=== PATIENT | male | born 1995 | race Caucasian/White ===

== ENCOUNTER 2022-07-22 11:48 | Emergency (ER) | payer OTHER ==
[2022-07-22] MEDS ORDERED: KETOROLAC 30 MG/ML INJ ONE (12:04)
[2022-07-22] MEDS ORDERED: ONDANSETRON 4 MG/2 ML VIAL ONE ×2 (12:05→12:16)
[2022-07-22] MEDS ORDERED: NA CHLORIDE 0.9% 1,000 ML ONE ×2 (12:05→15:07)
[2022-07-22 12:15] LABS: Absolute Lymphocytes (CBC) 3.7 K/uL (0.7-4.9); Hematocrit 46.8 % (39.6-49.0); Lymphocytes % 29.9 % (15.3-44.8); MCV 89.3 fL (80-100); MPV 8.9 fL (7.6-11.3); RBC Red Blood Cell Count 5.24 M/uL (4.33-5.43)
[2022-07-22] MEDS ORDERED: CEFTRIAXONE 1000 MG/VIAL ONE (12:16)
[2022-07-22] MEDS ORDERED: TAMSULOSIN 0.4 MG SR CAP ONE (12:16)
[2022-07-22] MEDS ORDERED: MORPHINE 4 MG/ML SYR ONE (12:16)
[2022-07-22 12:30] LABS: Albumin 4.5 g/dL (3.4-5.0); Bilirubin Total 0.9 mg/dL (0.2-1.0); Potassium 3.6 mEq/L (3.5-5.1); Protein, Total 7.9 g/dL (6.4-8.2)
--- NOTE | 2022-07-22 13:14 | RAD REPORT ---
EXAM DESCRIPTION: CT - Stone Protocol - 07/22/2022 1:03 pm CLINICAL HISTORY: Flank pain. FLANK PAIN COMPARISON: No comparisons TECHNIQUE: Axial images were obtained without oral or IV contrast. Lack of contrast limits solid org an and vascular assessment. The [id number] spans the entirety of the system partially obscuring uppermost abdomen and lung bases. Coronal reformatted images were obtained and reviewed. All CT scans are performed using dose optimization technique as appropriate and may include automated exposure control or mA/KV adjustment according to patient size. FINDINGS: The lower lung rick are clear. Imaged portions of the liver and spleen show no suspicious findings on non-contrast imaging. The panc reas and adrenal glands are normal. No pathologic lymphadenopathy in the abdomen or pelvis. 3 mm calculus right UVJ resulting in mild right hydronephrosis. No left-sided tract stone. No bowel obstruction, free air, free fluid or abscess. Normal appendix noted. No significant bony abnormality. IMPRESSION: 3 mm calculus right UVJ resulting in mild right hydronephrosis.
--- NOTE | 2022-07-22 13:23 | ER ---
Nurse's Notes [facility] Name: Quinn Jeong Age: 26 yrs Sex: Male : 1995 Arrival Date: 07/22/2022 Time: 11:48 Bed 2 Private MD: Diagnosis: Hydronephrosis with renal and ureteral calculous obstruction-3 mm right Presentation: 07/22 11:57 Chief complaint: Right flank pain that radiates to right testicle, N/V, and difficulty hb urinating since this morning. Coronavirus screen: At this time, the client does not indicate any symptoms associated with coronavirus-19. Ebola Screen: No symptoms or risks identified at this time. Initial Sepsis Screen: Does the patient meet any 2 criteria? No. Patient's initial sepsis screen is negative. Does the patient have a suspected source of infection? No. Patient's initial sepsis screen is negative. Risk Assessment: Do you want to hurt yourself or someone else? Patient reports no desire to harm self or others. Onset of symptoms was July 22, 2022. 11:57 Method Of Arrival: Ambulatory hb 11:57 Acuity: MAYCO 3 hb Historical: - Allergies: 11:58 No Known Allergies; hb - PMHx: 11:59 Kidney Stones; hb - PSHx: 11:59 None; hb - Immunization history:: Adult Immunizations up to date. - Social history:: Smoking status: Patient reports the use of cigarette tobacco products, smokes one-half pack cigarettes per day. Screenin:16 [facility] ED Fall Risk Assessment (Adult) History of falling in the last 3 months, mb9 including since admission No falls in past 3 months (0 pts) Confusion or Disorientation No (0 pts) Intoxicated or Sedated No (0 pts) Impaired Gait No (0 pts) Mobility Assist Device Used No (0 pt) Altered Elimination No (0 pt) Score/Fall Risk Level 0 - 2 = Low Risk Oriented to surroundings, Maintained a safe environment, Educated pt \T\ family on fall prevention, incl call for assistance when getting out of bed. Abuse screen: Denies threats or abuse. Nutritional screening: No deficits noted. Tuberculosis screening: No symptoms or risk factors identified. Assessment: 12:22 General: Appears uncomfortable, Behavior is restless. Pain: Complains of pain in back mb9 Pain radiates to right flank and RLQ and right testicle Pain currently is 10 out of 10 on a pain scale. Quality of pain is described as throbbing, Pain began suddenly, Is continuous. Neuro: Level of Consciousness is awake, alert, obeys commands, Oriented to person, place, time, situation, Appropriate for age. Cardiovascular: Rhythm is regular. Respiratory: Airway is patent Respiratory effort is even, unlabored, Respiratory pattern is regular, symmetrical. GI: Abdomen is flat, non-distended, Bowel sounds present X 4 quads. Abd is soft Abdomen is tender to palpation in right lower quadrant Reports nausea, vomiting. Derm: Skin is intact, is healthy with good turgor, Skin is clammy, Skin is pale, Skin temperature is cool. Musculoskeletal: Range of motion: intact in all extremities. 13:30 Reassessment: Patient and/or family updated on plan of care and expected duration. Pain mb9 level reassessed. Patient is alert, oriented x 3, equal unlabored respirations, skin warm/dry/pink. Patient states symptoms have improved. 14:20 Reassessment: Discharge pending until pt can urinate. mb9 15:50 Reassessment: No changes from previously documented assessment. Patient and/or family mb9 updated on plan of care and expected duration. Pain level reassessed. Patient is alert, oriented x 3, equal unlabored respirations, skin warm/dry/pink. Patient states feeling better. Patient states symptoms have improved. Vital Signs: 11:57 BP 94 / 80; Pulse 88; Resp 18; Temp 98.9; Pulse Ox 100% on R/A; Weight 83.91 kg; Height hb 5 ft. 10 in. ; Pain 10/10; 12:15 BP 133 / 79; Pulse 68; Resp 18; Pulse Ox 100% on R/A; Pain 10/10; mb9 13:35 BP 128 / 78; Pulse 61; Resp 16; Pulse Ox 99% on R/A; mb9 15:10 BP 119 / 76; Pulse 74; Resp 16; Pulse Ox 98% on R/A; mb9 15:50 BP 115 / 74; Pulse 68; Resp 18; Pulse Ox 100% ; mb9 11:57 Body Mass Index 26.54 (83.91 kg, 177.8 cm) hb 11:57 Pain Scale: Adult hb 12:15 Pain Scale: Adult mb9 ED Course: 11:50 Patient arrived in ED. mr 11:53 Umer Du MD is Attending Physician. fredi 11:58 Triage completed. hb 11:59 Arm band placed on. hb 12:00 Inserted saline lock: 20 gauge in left antecubital area, using aseptic technique. mb9 12:06 Charlotte Marcelino RN is Primary Nurse. mb9 12:06 CBC with Diff Sent. mb9 12:06 Comprehensive Metabolic Panel Sent. mb9 12:22 Placed in gown. Bed in low position. Call light in reach. Side rails up X 1. Client mb9 placed on continuous cardiac and pulse oximetry monitoring. NIBP monitoring applied. 12:24 No provider procedures requiring assistance completed. mb9 13:04 CT Stone Protocol In Process Unspecified. EDMS 13:20 Osmani Wetzel MD is Referral Physician. fredi 15:51 IV discontinued, intact, bleeding controlled, No redness/swelling at site. Pressure mb9 dressing applied. Administered Medications: 12:05 Drug: Ondansetron IVP 8 mg Route: IVP; Site: left antecubital; mb9 12:07 Drug: NS 0.9% IV 1000 ml Route: IV; Rate: 1 bolus; Site: left antecubital; mb9 12:07 Drug: Ketorolac IVP 30 mg Route: IVP; Site: left antecubital; mb9 12:15 Drug: Rocephin IV 1 grams Route: IV; Rate: per protocol; Site: left antecubital; mb9 12:25 Drug: Flomax PO 0.4 mg Route: PO; mb9 12:35 Drug: morphine IVP or IV 4 mg Route: IVP; Infused Over: 4 mins; Site: left antecubital; mb9 15:00 Drug: NS 0.9% IV 1000 ml Route: IV; Rate: 1 bolus; Site: left antecubital; mb9 15:07 Drug: HYDROmorphone IVP 1 mg Route: IVP; Site: left antecubital; mb9 Medication: 12:17 VIS not applicable for this client. mb9 Outcome: 13:22 Discharge ordered by . fredi 15:51 Discharged to home ambulatory. mb9 15:51 Condition: stable 15:51 Discharge instructions given to patient, Instructed on discharge instructions, follow up and referral plans. Demonstrated understanding of instructions, follow-up care, medications, Prescriptions given X 4. 15:51 Patient left the ED. [email or web address] Signatures: Dispatcher [employer] Umer Kline MD MD cha Rivera, Rachana Alegria, RN MAYA Marcelino, Charlotte Michael RN RN [email or web address] Corrections: (The following items were deleted from the chart) 15:11 15:10 BP 128 / 78; Pulse 61bpm; Resp 16bpm; Pulse Ox 99% RA; ramandeep [email or web address]
--- NOTE | 2022-07-22 13:23 | EDPHYS ---
Physician Documentation [facility] Name: Quinn Jeong Age: 26 yrs Sex: Male : 1995 Arrival Date: 07/22/2022 Time: 11:48 Bed 2 Private MD: ED Physician Umer Du HPI: 07/22 12:01 This 26 yrs old Male presents to ER via Ambulatory with complaints of fredi Abdominal Pain, Vomiting, Testicular Pain. 12:01 The patient presents to the emergency department with nausea, vomiting, that is fredi intermittent. Onset: The symptoms/episode began/occurred just prior to arrival. Possible causes: unknown. The symptoms are aggravated by nothing. The symptoms are alleviated by nothing. Severity of symptoms: At their worst the symptoms were severe in the emergency department the symptoms are unchanged. The patient has experienced similar episodes in the past, multiple times. Historical: - Allergies: 11:58 No Known Allergies; hb - PMHx: 11:59 Kidney Stones; hb - PSHx: 11:59 None; hb - Immunization history:: Adult Immunizations up to date. - Social history:: Smoking status: Patient reports the use of cigarette tobacco products, smokes one-half pack cigarettes per day. ROS: 13:14 Constitutional: Negative for fever, chills, and weight loss, Eyes: Negative for injury, fredi pain, redness, and discharge, ENT: Negative for injury, pain, and discharge, Neck: Negative for injury, pain, and swelling, Cardiovascular: Negative for chest pain, palpitations, and edema, Respiratory: Negative for shortness of breath, cough, wheezing, and pleuritic chest pain, Back: Negative for injury and pain, : Negative for injury, bleeding, discharge, and swelling, MS/Extremity: Negative for injury and deformity, Skin: Negative for injury, rash, and discoloration, Neuro: Negative for headache, weakness, numbness, tingling, and seizure, Psych: Negative for depression, anxiety, suicide ideation, homicidal ideation, and hallucinations, Allergy/Immunology: Negative for hives, rash, and allergies, Endocrine: Negative for neck swelling, polydipsia, polyuria, polyphagia, and marked weight changes, Hematologic/Lymphatic: Negative for swollen nodes, abnormal bleeding, and unusual bruising. 13:14 Abdomen/GI: Positive for abdominal pain, abdominal distension, of the left lower quadrant. Exam: 13:14 Constitutional: This is a well developed, well nourished patient who is awake, alert, fredi and in no acute distress. Head/Face: Normocephalic, atraumatic. Eyes: Pupils equal round and reactive to light, extra-ocular motions intact. Lids and lashes normal. Conjunctiva and sclera are non-icteric and not injected. Cornea within normal limits. Periorbital areas with no swelling, redness, or edema. ENT: Nares patent. No nasal discharge, no septal abnormalities noted. Tympanic membranes are normal and external auditory canals are clear. Oropharynx with no redness, swelling, or masses, exudates, or evidence of obstruction, uvula midline. Mucous membranes moist. Neck: Trachea midline, no thyromegaly or masses palpated, and no cervical lymphadenopathy. Supple, full range of motion without nuchal rigidity, or vertebral point tenderness. No Meningismus. Chest/axilla: Normal chest wall appearance and motion. Nontender with no deformity. No lesions are appreciated. Cardiovascular: Regular rate and rhythm with a normal S1 and S2. No gallops, murmurs, or rubs. Normal PMI, no JVD. No pulse deficits. Respiratory: Lungs have equal breath sounds bilaterally, clear to auscultation and percussion. No rales, rhonchi or wheezes noted. No increased work of breathing, no retractions or nasal flaring. Back: No spinal tenderness. No costovertebral tenderness. Full range of motion. Male : Normal genitalia with no discharge or lesions. Skin: Warm, dry with normal turgor. Normal color with no rashes, no lesions, and no evidence of cellulitis. MS/ Extremity: Pulses equal, no cyanosis. Neurovascular intact. Full, normal range of motion. Neuro: Awake and alert, GCS 15, oriented to person, place, time, and situation. Cranial nerves II-XII grossly intact. Motor strength 5/5 in all extremities. Sensory grossly intact. Cerebellar exam normal. Normal gait. Psych: Awake, alert, with orientation to person, place and time. Behavior, mood, and affect are within normal limits. 13:17 Abdomen/GI: Inspection: [facility] 13:17 Abdomen/GI: Inspection: abdomen appears normal, Bowel sounds: normal, Palpation: moderate abdominal tenderness, in the right lower quadrant, Liver: is firm, Hernia: not appreciated. Vital Signs: 11:57 BP 94 / 80; Pulse 88; Resp 18; Temp 98.9; Pulse Ox 100% on R/A; Weight 83.91 kg; Height hb 5 ft. 10 in. ; Pain 10/10; 12:15 BP 133 / 79; Pulse 68; Resp 18; Pulse Ox 100% on R/A; Pain 10/10; mb9 13:35 BP 128 / 78; Pulse 61; Resp 16; Pulse Ox 99% on R/A; mb9 15:10 BP 119 / 76; Pulse 74; Resp 16; Pulse Ox 98% on R/A; mb9 15:50 BP 115 / 74; Pulse 68; Resp 18; Pulse Ox 100% ; mb9 11:57 Body Mass Index 26.54 (83.91 kg, 177.8 cm) hb 11:57 Pain Scale: Adult hb 12:15 Pain Scale: Adult mb9 MDM: 11:53 Patient medically screened. [facility] 13:13 Differential diagnosis: nephrolithiasis, pyelonephritis, UTI, Nonspecific abd pain, fredi gastritis. Data reviewed: vital signs, nurses notes, lab test result(s), radiologic studies, CT scan. Consideration of Admission/Observation Escalation of care including admission/observation considered. I considered the following discharge prescriptions or medication management in the emergency department Medications were administered in the Emergency Department. See MAR. Independent interpretation of the following test(s) in the Emergency Department CT Scan: My interpretation is ct stone 3 mm uvj. Test considered but Not performed: Ultrasound no renal usg. 13:19 Historians other than the Patient: Spouse/Significant Other: , well informed. Care fredi significantly affected by the following chronic conditions: kidneystone. 07/22 11:59 Order name: CBC with Diff; Complete Time: 13:12 [facility] 07/22 11:59 Order name: Comprehensive Metabolic Panel; Complete Time: 13:12 [facility] 07/22 11:59 Order name: Urinalysis w/ reflexes [facility] 07/22 11:59 Order name: CT Stone Protocol [facility] 07/22 13:58 Order name: NPO; Complete Time: 14:38 fredi Administered Medications: 12:05 Drug: Ondansetron IVP 8 mg Route: IVP; Site: left antecubital; mb9 12:07 Drug: NS 0.9% IV 1000 ml Route: IV; Rate: 1 bolus; Site: left antecubital; mb9 12:07 Drug: Ketorolac IVP 30 mg Route: IVP; Site: left antecubital; mb9 12:15 Drug: Rocephin IV 1 grams Route: IV; Rate: per protocol; Site: left antecubital; mb9 12:25 Drug: Flomax PO 0.4 mg Route: PO; mb9 12:35 Drug: morphine IVP or IV 4 mg Route: IVP; Infused Over: 4 mins; Site: left antecubital; mb9 15:00 Drug: NS 0.9% IV 1000 ml Route: IV; Rate: 1 bolus; Site: left antecubital; mb9 15:07 Drug: HYDROmorphone IVP 1 mg Route: IVP; Site: left antecubital; mb9 Disposition Summary: 07/22/22 13:22 Discharge Ordered Location: Home fredi Problem: new fredi Symptoms: have improved fredi Condition: Stable fredi Diagnosis - Hydronephrosis with renal and ureteral calculous obstruction - 3 mm right fredi Followup: fredi - With: Private Physician - When: 2 - 3 days - Reason: Recheck today's complaints, Continuance of care, Re-evaluation by your physician Followup: fredi - With: Osmani Wetzel MD - When: 2 - 3 days - Reason: Recheck today's complaints, Continuance of care, Re-evaluation by your physician Discharge Instructions: - Discharge Summary Sheet fredi - Kidney Stones fredi - Kidney Stones, [id number] fredi - Hydronephrosis fredi - Dietary Guidelines to Help Prevent Kidney Stones fredi Forms: - Medication Reconciliation Form fredi - Thank You Letter fredi - Antibiotic Education fredi - Prescription Opioid Use fredi Prescriptions: - Flomax 0.4 mg Oral capsule - take 1 capsule by ORAL route every 24 hours; 30 capsule; Refills: 0, Product fredi Selection Permitted - acetaminophen-codeine 300-30 mg Oral tablet - take 2 tablet by ORAL route every 6 hours as needed for pain; 24 tablet; fredi Refills: 0, Product Selection Permitted - Zofran 4 mg Oral Tablet - take 1 tablet by ORAL route every 12 hours As needed; 20 tablet; Refills: 0, fredi Product Selection Permitted - Cipro 500 mg Oral Tablet - take 1 tablet by ORAL route every 12 hours for 7 days; 14 tablet; Refills: 0, fredi Product Selection Permitted Signatures: Dispatcher [employer] Umer Kline MD MD cha Baxter, Heather RN RN Charlotte Tamayo RN RN mb9 Corrections: (The following items were deleted from the chart) 13:19 13:14 Abdomen/GI: Inspection: abdomen appears normal, Bowel sounds: normal, Palpation: fredi mild abdominal tenderness, in the left lower quadrant, Liver: no appreciated palpable abnormalities, Hernia: not appreciated, freid
[2022-07-22] MEDS ORDERED: HYDROMORPHONE HCL 1 MG/ML INJ ONE (15:07)
[2022-07-22 15:20] LABS: Specific Gravity > 1.030 (1.005-1.030); Urine Bacteria None Seen /HPF (<20); Urine Bilirubin NEGATIVE (Negative); Urine Blood Trace (Negative); Urine Clarity Clear (Clear); Urine Color Yellow (Yellow); Urine Crystals Unidentified Few /HPF (None Seen); Urine Glucose NEGATIVE (Negative); Urine Mucus 4+ /HPF (None Seen); Urine Protein 1+ (Negative); Urine RBC 21-50 /HPF (None Seen); Urine Urobilinogen 1+ (Normal)
[2022-07-22 16:10] VITALS: TEMP 98.9
[2022-07-22 16:17] VITALS: BP 115/74; O2SAT 100
== END 2022-07-22 15:51 | disposition home or self-care (01) ==
LOC: ER 11:48
DX: N13.2 Hydronephrosis with renal and ureteral calculous obstruction (principal); Z87.442 Personal history of urinary calculi; F17.210 Nicotine dependence, cigarettes, uncomplicated
CPT/HCPCS: 85025; 81001; 36415; 80053; 76377; 74176; J1170; J2405 ×2; J7030 ×2; J0696